=== PATIENT | male | born 1945 | race Caucasian/White ===

== ENCOUNTER 2019-02-28 19:57 | Inpatient (IN) ==
[2019-03-01] MEDS ORDERED: Dextrose Gel 15 GM/37.5 ML TUBE PO PRN ×2 (00:32)
[2019-03-01] MEDS ORDERED: *HR* Dextrose 50 % in Water (Syg) 50 ML SYRINGE IVP PRN (00:32)
[2019-03-01] MEDS ORDERED: Nicotine 2 MG GUM BC PRN (00:32)
[2019-03-01] MEDS ORDERED: Naloxone 0.4 MG/ML INJ IVP PRN ×2 (00:32→00:59)
[2019-03-01] MEDS ORDERED: D5% in Water 1,000 ML IVC PRN (00:32)
[2019-03-01 01:00] LABS: Basophils % 0.1 %; Hematocrit 38.2 % (37.5-50.1); Hemoglobin 13.2 g/dL (12.9-16.9); Immature Granulocytes % 0.6 % (0-4); Lymphocytes # 0.4 K/mcL (0.6-4.6); Lymphocytes % 3.1 %; Mean Corpuscular HGB Conc 34.6 g/dL (31.6-35.5); Mean Corpuscular Hemoglobin 30.8 pg (28.0-33.3); Mean Corpuscular Volume 89.3 fL (83.0-100.0); Mean Platelet Volume 9.2 fL (9.4-12.4); Monocytes # 0.2 K/mcL (0.0-1.3); Monocytes % 1.5 %; Neutrophils # 12.2 K/mcL (1.6-8.9); Platelet Count 169 K/mcL (140-400); Red Blood Count 4.28 M/mcL (4.19-5.50); Red Cell Distribution Width 12.9 % (11.5-14.5); Segmented Neutrophils % 94.7 %; White Blood Count 12.9 K/mcL (4.3-11.1)
[2019-03-01 01:07] LABS: INR 1.3; Prothrombin Time 14.8 Seconds (9.4-12.1)
[2019-03-01 01:20] LABS: Alanine Aminotransferase 57 Units/L (7-52); Albumin 3.8 g/dL (3.5-5.7); Albumin/Globulin Ratio 1.2 (1.1-2.2); Alkaline Phosphatase 91 Units/L (34-104); Aspartate Amino Transferase 49 Units/L (13-39); BUN/Creatinine Ratio 13 (6-26); Bilirubin,Total 2.8 mg/dL (0.3-1.0); Blood Urea Nitrogen 17 mg/dL (8-23); Calcium 9.5 mg/dL (8.6-10.3); Carbon Dioxide 22 mEq/L (23-29); Chloride 108 mEq/L (98-107); Globulin 3.1 g/dL (2.4-3.5); Glucose 208 mg/dL (70-105); Osmolality,Calculated 298 (280-300); Potassium 3.6 mEq/L (3.5-5.1); Sodium 140 mEq/L (136-145); Total Protein 6.9 g/dL (6.4-8.9); eGFR For African Americans > 60 (> 60); eGFR For Non-African Americans 52 (> 60)
[2019-03-01] MEDS ORDERED: 0.9 % Sodium Chloride 1,000 ML IVC ONE (02:11)
[2019-03-01] MEDS ORDERED: cefTRIAXone 1,000 MG in Water for inj. (sterile) 10 ML IVPB ONE (02:28)
[2019-03-01 02:40] LABS: Basophils % 0.1 %; Hematocrit 38.4 % (37.5-50.1); Hemoglobin 12.9 g/dL (12.9-16.9); Immature Granulocytes % 1.1 % (0-4); Lymphocytes # 0.5 K/mcL (0.6-4.6); Lymphocytes % 3.8 %; Mean Corpuscular HGB Conc 33.6 g/dL (31.6-35.5); Mean Corpuscular Hemoglobin 30.5 pg (28.0-33.3); Mean Corpuscular Volume 90.8 fL (83.0-100.0); Mean Platelet Volume 9.7 fL (9.4-12.4); Monocytes # 0.3 K/mcL (0.0-1.3); Monocytes % 1.8 %; Neutrophils # 13.2 K/mcL (1.6-8.9); Platelet Count 172 K/mcL (140-400); Red Blood Count 4.23 M/mcL (4.19-5.50); Red Cell Distribution Width 12.9 % (11.5-14.5); Segmented Neutrophils % 93.2 %; White Blood Count 14.1 K/mcL (4.3-11.1)
[2019-03-01 02:57] LABS: Bilirubin,Urine Negative (Negative); Blood,Urine Negative (Negative); Clarity,Urine Clear (Clear); Color,Urine Yellow (Yellow); Glucose,Urine (UA) Normal (Normal); Ketones,Urine Negative (Negative); Leukocyte Esterase,Urine Negative (Negative); Nitrite,Urine Negative (Negative); Protein,Urine 30 mg/dL (Neg-Trace); Urobilinogen,Urine Normal (Normal)
[2019-03-01 02:59] LABS: Alanine Aminotransferase 56 Units/L (7-52); Albumin/Globulin Ratio 1.3 (1.1-2.2); Alkaline Phosphatase 93 Units/L (34-104); Aspartate Amino Transferase 47 Units/L (13-39); BUN/Creatinine Ratio 13 (6-26); Bilirubin,Direct 0.6 mg/dL (0.0-0.2); Bilirubin,Indirect 2.1 mg/dL (0.0-1.0); Bilirubin,Total 2.7 mg/dL (0.3-1.0); Blood Urea Nitrogen 18 mg/dL (8-23); Calcium 9.6 mg/dL (8.6-10.3); Carbon Dioxide 23 mEq/L (23-29); Chloride 108 mEq/L (98-107); Chol/HDL Ratio 2.9 (0-4.9); Cholesterol 141 mg/dL (< 200); Globulin 3.2 g/dL (2.4-3.5); Glucose 200 mg/dL (70-105); HDL Cholesterol 49 mg/dL (40-59); LDL Cholesterol,Calculated 77 mg/dL (0-99); Magnesium 1.5 mg/dL (1.6-2.6); Osmolality,Calculated 298 (280-300); Phosphorous 1.4 mg/dL (2.7-4.5); Potassium 3.5 mEq/L (3.5-5.1); Sodium 140 mEq/L (136-145); Total Protein 7.2 g/dL (6.4-8.9); Triglycerides 73 mg/dL (< 150); eGFR For African Americans > 60 (> 60); eGFR For Non-African Americans 51 (> 60)
[2019-03-01 02:59] LABS: Bacteria,Urine None Seen per hpf (None-Few); Hyaline Casts,Urine None Seen per lpf (None-Few); RBC,Urine 0-3 per hpf (0-3); Squamous Epithelial Cell,Urine Moderate per lpf (None-Few); WBC,Urine 0-3 per hpf (0-3)
[2019-03-01] MEDS ORDERED: Vancomycin (wt based) 1,000 MG VIAL IVPB SCH (03:00)
[2019-03-01 03:08] LABS: Sodium, Urine 43.3 mEq/L
[2019-03-01] MEDS: Nicotine 14 MG PATCH.TD24 TD SCH (03:11)
[2019-03-01] MEDS: *HR* Heparin 5,000 UNIT/ML VIAL SQ SCH ×3 (05:23→21:47)
[2019-03-01] MEDS: Insulin LISPRO 300 UNITS/3 ML VIAL SQ SCH ×3 (07:09→17:14)
[2019-03-01] MEDS ORDERED: Aminoglycoside Consult 1 EACH MC ONE (07:57)
[2019-03-01 08:37] LABS: Estimated Average Glucose 140 mg/dl
[2019-03-01] MEDS: Dexamethasone 10 MG/ML VIAL IVP SCH ×2 (10:57→16:52)
[2019-03-01] MEDS: D5% in 0.9% NACL w KCl 20 MEQ/1,000 ML MLS IVC SCH ×2 (10:57→21:47)
[2019-03-01] MEDS ORDERED: Lidocaine -MPF 1% 5 ML AMPUL INFILT ONE (11:22)
[2019-03-01] MEDS ORDERED: Ampicillin/Sulbactam 3,000 MG in 0.9 % Sodium Chloride 100 ML IVPB SCH (12:00)
[2019-03-01 14:11] LABS: % Iron Saturation 6 % (20-55); Iron 19 mcg/dL (65-175); Transferrin 234 mg/dL (203-362)
[2019-03-01 14:30] LABS: Ferritin 184 ng/mL (20-250)
[2019-03-01 14:42] LABS: Hepatitis B Surface Antigen Nonreactive (Nonreactive)
[2019-03-01 15:11] LABS: Hepatitis B Core IgM Nonreactive (Nonreactive)
[2019-03-01 15:12] LABS: Hepatitis A Antibody IgM Nonreactive (Nonreactive); Hepatitis C Virus Antibody Nonreactive (Nonreactive)
[2019-03-01] MEDS: Cefepime HCl 2,000 MG in 0.9 % Sodium Chloride Mini Bag 100 ML IVPB SCH (16:52)
[2019-03-02] MEDS: Dexamethasone 10 MG/ML VIAL IVP SCH ×3 (00:59→15:58)
[2019-03-02 03:18] LABS: Basophils % 0.1 %; Hematocrit 32.3 % (37.5-50.1); Immature Granulocytes % 0.9 % (0-4); Lymphocytes # 0.5 K/mcL (0.6-4.6); Lymphocytes % 4.4 %; Mean Corpuscular HGB Conc 34.1 g/dL (31.6-35.5); Mean Corpuscular Hemoglobin 30.6 pg (28.0-33.3); Mean Corpuscular Volume 89.7 fL (83.0-100.0); Mean Platelet Volume 10.2 fL (9.4-12.4); Monocytes # 0.3 K/mcL (0.0-1.3); Monocytes % 2.4 %; Neutrophils # 9.7 K/mcL (1.6-8.9); Platelet Count 168 K/mcL (140-400); Red Cell Distribution Width 13.1 % (11.5-14.5); Segmented Neutrophils % 92.2 %; White Blood Count 10.6 K/mcL (4.3-11.1)
[2019-03-02 03:55] LABS: Alanine Aminotransferase 33 Units/L (7-52); Albumin 3.2 g/dL (3.5-5.7); Albumin/Globulin Ratio 1.1 (1.1-2.2); Alkaline Phosphatase 67 Units/L (34-104); Aspartate Amino Transferase 19 Units/L (13-39); BUN/Creatinine Ratio 18 (6-26); Bilirubin,Total 0.8 mg/dL (0.3-1.0); Blood Urea Nitrogen 21 mg/dL (8-23); Calcium 9.1 mg/dL (8.6-10.3); Carbon Dioxide 21 mEq/L (23-29); Chloride 116 mEq/L (98-107); Globulin 2.8 g/dL (2.4-3.5); Glucose 173 mg/dL (70-105); Osmolality,Calculated 309 (280-300); Phosphorous 1.9 mg/dL (2.7-4.5); Potassium 4.1 mEq/L (3.5-5.1); Sodium 146 mEq/L (136-145); eGFR For African Americans > 60 (> 60); eGFR For Non-African Americans > 60 (> 60)
[2019-03-02] MEDS: Cefepime HCl 2,000 MG in 0.9 % Sodium Chloride Mini Bag 100 ML IVPB SCH ×2 (05:50→18:33)
[2019-03-02] MEDS: *HR* Heparin 5,000 UNIT/ML VIAL SQ SCH ×3 (05:50→22:14)
[2019-03-02] MEDS: Nicotine 14 MG PATCH.TD24 TD SCH (05:58)
[2019-03-02] MEDS ORDERED: D5% in 0.45% NACL w KCl 10 MEQ/1,000 ML MLS IVC SCH ×2 (07:45→11:31)
[2019-03-02] MEDS: Insulin LISPRO 300 UNITS/3 ML VIAL SQ SCH ×3 (07:59→18:31)
[2019-03-02] MEDS: amLODIPine 5 MG TABLET PO SCH (09:11)
[2019-03-02] MEDS: Aspirin Enteric Coated 81 MG Tablet PO SCH (09:11)
[2019-03-02] MEDS ORDERED: Melatonin 3 MG TABLET PO ONE (21:08)
[2019-03-03] MEDS: Dexamethasone 10 MG/ML VIAL IVP SCH
[2019-03-03] MEDS: Nicotine 14 MG PATCH.TD24 TD SCH (00:12)
[2019-03-03] MEDS: *HR* Heparin 5,000 UNIT/ML VIAL SQ SCH (06:27)
[2019-03-03] MEDS: Cefepime HCl 2,000 MG in 0.9 % Sodium Chloride Mini Bag 100 ML IVPB SCH (06:28)
[2019-03-03 06:57] LABS: Basophils % 0.1 %; Hematocrit 34.4 % (37.5-50.1); Hemoglobin 12.1 g/dL (12.9-16.9); Immature Granulocytes % 1.6 % (0-4); Lymphocytes # 0.7 K/mcL (0.6-4.6); Lymphocytes % 7.2 %; Mean Corpuscular HGB Conc 35.2 g/dL (31.6-35.5); Mean Corpuscular Hemoglobin 31.1 pg (28.0-33.3); Mean Corpuscular Volume 88.4 fL (83.0-100.0); Mean Platelet Volume 10.5 fL (9.4-12.4); Monocytes # 0.2 K/mcL (0.0-1.3); Monocytes % 2.1 %; Platelet Count 163 K/mcL (140-400); Red Blood Count 3.89 M/mcL (4.19-5.50); Red Cell Distribution Width 13.2 % (11.5-14.5)
[2019-03-03 07:07] LABS: BUN/Creatinine Ratio 19 (6-26); Blood Urea Nitrogen 24 mg/dL (8-23); Calcium 9.1 mg/dL (8.6-10.3); Carbon Dioxide 18 mEq/L (23-29); Chloride 114 mEq/L (98-107); Glucose 146 mg/dL (70-105); Osmolality,Calculated 305 (280-300); Phosphorous 2.9 mg/dL (2.7-4.5); Potassium 4.1 mEq/L (3.5-5.1); Sodium 144 mEq/L (136-145); eGFR For African Americans > 60 (> 60); eGFR For Non-African Americans 57 (> 60)
[2019-03-03] MEDS: amLODIPine 5 MG TABLET PO SCH (09:08)
[2019-03-03] MEDS: Aspirin Enteric Coated 81 MG Tablet PO SCH (09:08)
[2019-03-03] MEDS: Insulin LISPRO 300 UNITS/3 ML VIAL SQ SCH ×2 (09:11→11:52)
[2019-03-03 14:57] VITALS: BP 143/55
[2019-03-03 15:31] LABS: AFP Tumor Marker Non-Pregnant 1 ng/mL (0-9)
[2019-03-03 15:48] LABS: Immunoglobulin G Subclass 1 354 mg/dL (240-1118); Immunoglobulin G Subclass 2 125 mg/dL (124-549); Immunoglobulin G Subclass 3 15 mg/dL (21-134); Immunoglobulin G Subclass 4 37 mg/dL (1-123)
[2019-03-03 15:49] LABS: ANA IgG by ELISA NONE DETECTED (None Detected); F-Actin (sm muscle) Ab IgG 6 Units (0-19); Immunoglobulin A (CELIAC) 181 mg/dL (68-408); Serine Protease-3 Antibody 0 AU/mL (0-19)
[2019-03-04 10:53] LABS: Saccharomyces cerevisiae IgA 4.8 Units (0.0-24.9); Tissue Transglutaminase IgA 1 U/mL (0-3)
[2019-03-05 05:32] LABS: Alpha 2 Globulin (PEP) 0.96 g/dL (0.48-1.05); Beta Globulin (PEP) 0.95 g/dL (0.48-1.10)
[2019-03-05 08:40] LABS: IFE Reflexed IFE Done
[2019-03-05 08:41] LABS: Immunoglobulin A 179 mg/dL (68-408); Immunoglobulin G 614 mg/dL (768-1632); Immunoglobulin M 22 mg/dL (35-263)
[2019-03-06 16:37] LABS: A1A SZ Specimen WHOLE BLOOD; Alpha-1-Antitrypsin S Allele NEGATIVE; Alpha-1-Antitrypsin Z Allele NEGATIVE
[2019-03-07 12:29] LABS: Alpha-1-Antitrypsin 205 mg/dL (90-200)
== END 2019-03-03 16:30 | disposition home or self-care (01) | DRG 153 ==
LOC: EMEROOARM 19:57 → 3ANU 19:57 → SUATTDRO 03-01 00:46 → 3ANU 03-01 01:34
PROVIDERS: ADMIT Family Medicine; ATTEND Internal Medicine